=== PATIENT | female | born 1985 | race African-American/Black ===

== ENCOUNTER 2017-07-20 15:17 | Emergency (ER) | payer SELFPAY ==
--- NOTE | 2017-07-20 15:51 | PDOC ---
Rapid Medical Evaluation Chief Complaint: Respiratory Time Seen by Provider: 07/20/17 15:48 Medical Evaluation: 07/20/17 15:49 I have performed a brief in-person evaluation of this patient. The patient presents with a chief complaint of chest tightness, sneezing, head pressure and productive coughing since Thursday. Patient reports productive with whitish phlegm Also complaining of itching in throat and ears. Denies fever or chills Pertinent physical exam findings: nasal congestion, sinus tenderness lungs clear bilaterally heart s1, s2 I have ordered the following: rapid strep flu swab took tylenol cold and theraflu at 2pm The patient will proceed to the ED for further evaluation.
[2017-07-20 15:52] VITALS: BP 126/71; PULSE 65; TEMP 98.6; BMI 28.4
--- NOTE | 2017-07-20 16:53 | PDOC ---
History of Present Illness - General Chief Complaint: Respiratory Stated Complaint: CONGESTION Time Seen by Provider: 07/20/17 15:48 Past History - Past Medical History Allergies/Adverse Reactions: Allergies Allergy/AdvReac Type Severity Reaction Status Date / Time Penicillins Allergy Verified 07/20/17 15:49 Home Medications: Ambulatory Orders Albuterol Sulfate Inhaler - [Ventolin HFA Inhaler -] 1 - 2 inh PO Q4H #1 inhaler 07/20/17 Guaifenesin [Robitussin -] 100 mg PO Q4H #210 ml 07/20/17 - Suicide/Smoking/Psychosocial Hx Smoking History: Current some day smoker Information on smoking cessation initiated: No *Physical Exam - Vital Signs Last Vital Signs Temp Pulse Resp BP Pulse Ox 98.6 F 65 20 126/71 98 07/20/17 15:50 07/20/17 15:50 07/20/17 15:50 07/20/17 15:50 07/20/17 15:50 ED Treatment Course - ADDITIONAL ORDERS Additional order review: 07/20/17 16:10 Influenza Types A,B Antigen (LAURIE) - Preliminary Nasopharyngeal Swab - Preliminary 07/20/17 16:10 Group A Strep Rapid Antigen - Preliminary Throat *DC/Admit/Observation/Transfer Diagnosis at time of Disposition: Upper respiratory disease - Discharge Dispostion Disposition: HOME Admit: No - Referrals Referrals: Hannah Crabtree MD [Primary Care Provider] - - Patient Instructions Printed Discharge Instructions: DI for Viral Upper Respiratory Infection -- Adult Additional Instructions: Your strep test and flu test were negative today. You have an upper respiratory infection or the common cold. Please drink plenty of fluids. You may take Tylenol or Motrin as needed for fever or pain. Please take your albuterol inhaler every 4 hours to help with wheezing. You may also take Robitussin every 4 hours to help with your congestion. Please follow-up with your primary care doctor this week. Return to the emergency department if you have worsening shortness of breath, difficulty breathing, fevers, body aches, or any changes in your symptoms. - Post Discharge Activity Forms/Work/School Notes: Back to Work
[2017-07-20] MEDS ORDERED: ONDANSETRON *ODT* 4 MG TABLET SL ONE (16:55)
[2017-07-20] MEDS ORDERED: ALBUTEROL SO4 2.5/IPRATROPIUM 0.5 INH SOL 3 ML VIAL.NEB. NEB ONE ×2 (16:55→16:58)
[2017-07-20] MEDS ORDERED: IBUPROFEN 400 MG TABLET (FP) PO ONE ×2 (16:55→17:14)
[2017-07-20] MEDS ORDERED: ONDANSETRON *ODT* 4 MG TABLET ONE (16:58)
== END 2017-07-20 17:18 | disposition home or self-care (01) ==
LOC: JERFT 15:17
PROC: 3E0F7GC Introduction of Other Therapeutic Substance into Respiratory Tract, Via Natural or Artificial Opening (ICD-10-PCS; principal; 2017-07-20)
DX: J06.9 Acute upper respiratory infection, unspecified (principal); B97.89 Other viral agents as the cause of diseases classified elsewhere
CPT/HCPCS: 87070; 87430; 87804; 99281-25